=== PATIENT | female | born 1985 | race Caucasian/White ===

== ENCOUNTER 2017-09-21 08:45 | Emergency (ER) | payer BC ==
--- NOTE | 2017-09-21 09:47 | EDM.PDOC ---
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 Lives in [place], [place]. She called her clinic in [facility] and they suggested she go to a lab for a quant Beta HCG. She didn't know where to go so came here to our ER. Is very anxious. No cramping. Onset: Today Onset Date: 09/21/17 Duration: Hour(s):, Waxing/Waning Location: Reports: Pelvis Quality: Reports: Other (no pain) Severity: Mild Improves with: Reports: None Worsens with: Reports: Other (? 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: Reports: Endometriosis Other OB/BYN History: ENDOMETRIAL SCRAPING, IVF 08/28/17 - Past Surgical History HEENT Surgical History: Reports: Adenoidectomy, Tonsillectomy GI Surgical History: Reports: Cholecystectomy Social & Family History - Tobacco Use Smoking Status *Q: Unknown Ever Smoked ED ROS GENERAL - Review of Systems Review Of Systems: See Below Constitutional: Reports: No Symptoms HEENT: Reports: No Symptoms Respiratory: Reports: No Symptoms Cardiovascular: Reports: No Symptoms Endocrine: Reports: No Symptoms GI/Abdominal: Reports: No Symptoms : Reports: Other (pinkish vaginal discharge now, was darker earlier.) Musculoskeletal: Reports: No Symptoms Skin: Reports: No Symptoms Neurological: Reports: No Symptoms ED EXAM - Physical Exam Exam: See Below Exam Limited By: No Limitations General Appearance: Alert, WD/WN, No Apparent Distress, Anxious Eye Exam: Bilateral Eye: Normal Inspection Ears: Normal External Exam, Normal Canal, Hearing Grossly Normal, Normal TMs Nose: Normal Inspection, Normal Mucosa, No Blood Throat/Mouth: Normal Inspection, Normal Lips, Normal Oropharynx, Normal Voice, No Airway Compromise Head: Atraumatic, Normocephalic Neck: Normal Inspection Respiratory/Chest: No Respiratory Distress, Lungs Clear, Normal Breath Sounds, No Accessory Muscle Use Cardiovascular: Regular Rate, Rhythm, No Edema GI/Abdominal Exam: Normal Bowel Sounds, Soft (Female) Exam: Other (No attempt maded to listen for heart tones due to being only 3 weeks .) Back Exam: Normal Inspection. No: CVA Tenderness (R), CVA Tenderness (L) Extremities: Normal Inspection, Normal Range of Motion, Non-Tender, No Pedal Edema Neurological: Alert, Oriented, CN II-XII Intact, Normal Cognition, No Motor/ Sensory Deficits Psychiatric: Normal Affect, Normal Mood Skin Exam: Warm, Dry, Intact, Normal Color, No Rash Lymphatic: No Adenopathy Course - Vital Signs Last Recorded V/S: Last Vital Signs Temp 37.1 C 09/21/17 09:03 Pulse 101 H 09/21/17 09:03 Resp 20 09/21/17 09:03 BP 130/85 09/21/17 09:03 Pulse Ox 98 09/21/17 09:03 - Orders/Labs/Meds Labs: Laboratory Tests 09/21/17 Range/Units 09:37 HCG, Quant 06316 H (0-6) mIU/mL Departure - Departure Time of Disposition: 10:36 Disposition: Home, Self-Care 01 Condition: Good Clinical Impression: Vaginal bleeding affecting early - Discharge Information Referrals: PCP,None [Primary Care Provider] - Forms: ED Department Discharge
== END 2017-09-21 10:45 | disposition home or self-care (01) ==
LOC: JP.ED 08:45
DX: O20.9 Hemorrhage in early pregnancy, unspecified (principal); Z79.899 Other long term (current) drug therapy; Z3A.01 Less than 8 weeks gestation of pregnancy
CPT/HCPCS: 36415; 84702; 99284

== ENCOUNTER 2020-09-06 06:16 | Emergency (ER) | payer BC ==
--- NOTE | 2020-09-06 06:38 | EDM.PDOC ---
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 Patient is reportedly 9 weeks by dates. She has a history of IVF, however, this was a "natural ". Her first in 2018 went to full-term with a successful delivery. The patient is -0-0-1. The patient's blood type is A +. The patient reports that she got up this morning to go the bathroom and there was a small sized clot in the toilet and when she wiped there was some blood on the toilet paper. The spotting has subsequently gone away as she voided here in the ED and had no more blood. She denies any fever, chills, cough, chest pain or shortness of breath, loss of taste or smell, nausea, vomiting, diarrhea, or constipation. She has no urgency, frequency, or burning with urination. 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 She was scheduled for a ultrasound on Sunday. 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 RECRUITER History: ENDOMETRIAL SCRAPING, IVF 08/28/17 - Past Surgical History HEENT Surgical History: Reports: Adenoidectomy, Tonsillectomy GI Surgical History: Reports: Cholecystectomy <Sameer Gerber - Last Filed: 09/06/20 07:06> ED ROS GENERAL - Review of Systems Review Of Systems: See Below Constitutional: Reports: No Symptoms Respiratory: Reports: No Symptoms Cardiovascular: Reports: No Symptoms Endocrine: Reports: No Symptoms GI/Abdominal: Reports: No Symptoms : Reports: Other (Spotting at 9 weeks ) Musculoskeletal: Reports: No Symptoms Skin: Reports: No Symptoms Neurological: Reports: No Symptoms Psychiatric: Reports: Anxiety Hematologic/Lymphatic: Reports: No Symptoms Immunologic: Reports: No Symptoms <Sameer Gerber - Last Filed: 09/06/20 07:06> ED EXAM - Physical Exam Exam: See Below Exam Limited By: No Limitations General Appearance: Alert, WD/WN, No Apparent Distress Throat/Mouth: Normal Inspection, Normal Lips, Normal Oropharynx, Normal Voice Head: Atraumatic, Normocephalic Respiratory/Chest: No Respiratory Distress, Lungs Clear, Normal Breath Sounds Cardiovascular: Normal Peripheral Pulses, Regular Rate, Rhythm, No Edema, No Murmur GI/Abdominal Exam: Normal Bowel Sounds, Soft, Non-Tender Back Exam: Normal Inspection, Full Range of Motion Neurological: Alert, Oriented, Normal Cognition, No Motor/Sensory Deficits Psychiatric: Normal Affect, Normal Mood Skin Exam: Warm, Dry, Intact, Normal Color <Sameer Gerber - Last Filed: 09/06/20 07:06> Course <Sameer Gerebr - Last Filed: 09/06/20 07:06> <Matt Collins - Last Filed: 09/06/20 07:53> - Vital Signs Last Recorded V/S: Last Vital Signs Temp 37.1 C 09/06/20 06:33 Pulse 116 H 09/06/20 06:33 Resp 20 09/06/20 06:33 BP 131/94 H 09/06/20 06:33 Pulse Ox 99 09/06/20 06:33 - Orders/Labs/Meds Orders: Active Orders 24 hr Category Date Time Status OB 1st Tri Sgl 1st Gest [US] Stat Exams 09/06/20 06:38 Ordered OB Transvaginal [US] Stat Exams 09/06/20 06:38 Ordered Labs: Laboratory Tests 09/06/20 09/06/20 Range/Units 06:33 06:40 HCG, Quant 06456 H (0-6) mIU/mL Urine Color Yellow (YELLOW) Urine Appearance Clear (CLEAR) Urine pH 7.0 (5.0-8.0) Ur Specific [place] 1.015 (1.008-1.030) Urine Protein Negative (NEGATIVE) mg/dL Urine Glucose (UA) Negative (NEGATIVE) mg/dL Urine Ketones Negative (NEGATIVE) mg/dL Urine Occult Blood Small H (NEGATIVE) Urine Nitrite Negative (NEGATIVE) Urine Bilirubin Negative (NEGATIVE) Urine Urobilinogen 0.2 (0.2-1.0) EU/dL Ur Leukocyte Esterase Small H (NEGATIVE) Urine RBC 0-5 (0-5) Urine WBC 5-10 H (0-5) Ur Epithelial Cells Moderate Amorphous Sediment Not seen Urine Bacteria Few Urine Mucus Not seen - Re-Assessments/Exams Free Text/Narrative Re-Assessment/Exam: 09/06/20 07:06 care of the patient is turned over to Dr. Collins at 0700 hrs. while awaiting the results of labs and ultrasound. (Sameer Gerber) Free Text/Narrative Re-Assessment/Exam: 09/06/20 07:51 US showed vial embryo with HR in 180's, small bleed seen. (Matt Collins) Departure <Sameer Gerber - Last Filed: 09/06/20 07:06> - Departure Time of Disposition: 07:52 Condition: Good - Discharge Information *PRESCRIPTION DRUG MONITORING PROGRAM REVIEWED*: Not Applicable *COPY OF PRESCRIPTION DRUG MONITORING REPORT IN PATIENT BRANNON: Not Applicable <Matt Collins - Last Filed: 09/06/20 07:53> - Departure Disposition: Home, Self-Care 01 Clinical Impression: First trimester bleeding - Discharge Information Referrals: Azul Vazquez CNM [Primary Care Provider] - Forms: ED Department Discharge Additional Instructions: F/U with your provider. No specific treatment indicated today. Sepsis Event Note (ED) - Focused Exam Vital Signs: Vital Signs Temp Pulse Resp BP Pulse Ox 09/06/20 06:33 37.1 C 116 H 20 131/94 H 99
--- NOTE | 2020-09-06 09:43 | US ---
INDICATION: 1st trimester bleeding COMPARISON: None FINDINGS: Uterus measures 11.6 x 6.0 x 8.1 cm. There is a gestational sac within the uterus main sac diameter is 3.0 cm correlating to an 8 week 3 day gestation. There is a pole. [place]-rump length measures 2.4 cm which correlates to a 9 week 2 day gestation. heart rate: 181 BPM. TALA is 04/09/2021 Yolk sac seen. Other findings: There is a small chorionic hemorrhage below the gestational sac measuring 1.9 x 0.4 x 0.8 cm. IMPRESSION: Single live IUP at 9 weeks 2 days There is subchorionic hemorrhage inferior to the gestational sac measuring 1.9 x 0.4 x 0.8 cm
== END 2020-09-06 08:00 | disposition home or self-care (01) ==
LOC: JP.ED 06:16
DX: O20.9 Hemorrhage in early pregnancy, unspecified (principal); Z88.1 Allergy status to other antibiotic agents; Z3A.09 9 weeks gestation of pregnancy
CPT/HCPCS: 36415; 76801; 76801-26; 81001; 84702; 99282; 99284-25

== ENCOUNTER 2021-03-27 21:51 | Inpatient (IN) | payer BC, MEDICAID ==
[2021-03-27] MEDS ORDERED: Sodium Chloride 0.9% 10 ML Syringe FLUSH PRN (23:31)
[2021-03-27] MEDS ORDERED: Acetaminophen 325 MG Tab PO PRN (23:31)
[2021-03-27] MEDS ORDERED: Ondansetron 4 MG/2 ML SDV IV PRN (23:31)
--- NOTE | 2021-03-27 23:43 | PCM.LDHP ---
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, Other OB/BYN History: ENDOMETRIAL SCRAPING, IVF 08/28/17 - Past Surgical History HEENT Surgical History: Reports: Adenoidectomy, Tonsillectomy GI Surgical History: Reports: Cholecystectomy Social & Family History - Tobacco Use Tobacco Use Status *Q: Never Tobacco User Second Hand Smoke Exposure: No - Caffeine Use Caffeine Use: Reports: Soda - Recreational Drug Use Recreational Drug Use: No H&P Review of Systems - Review of Systems: Review Of Systems: See Below General: Reports: No Symptoms HEENT: Reports: No Symptoms Pulmonary: Reports: No Symptoms Cardiovascular: Reports: No Symptoms Gastrointestinal: Reports: No Symptoms Genitourinary: Reports: No Symptoms Musculoskeletal: Reports: No Symptoms Skin: Reports: No Symptoms Psychiatric: Reports: No Symptoms Neurological: Reports: No Symptoms Hematologic/Lymphatic: Reports: No Symptoms Immunologic: Reports: No Symptoms L&D Exam - Exam Exam: See Below - Vital Signs Vital Signs: Last Vital Signs Temp 36.3 C 03/27/21 22:00 Pulse 82 03/27/21 22:00 Resp 16 03/27/21 22:00 BP 147/76 H 03/27/21 22:00 Pulse Ox 97 03/27/21 22:00 Weight: 83.915 kg - OB Specific Contraction Intensity: Moderate to Strong Movement: Active Heart Tones: Present Heart Rate (FHR) Variability: Moderate (6-25 bpm) Presentation: Vertex - Acharya Score Acharya Score Cervix Position: Midposition Acharya Score Consistency: Soft Acharya Score Effacement: >80% Acharya Score Dilation: 3-4 cm Acharya Score Infant's Station: -1 ,0 Acharya Score Total: 10 - Exam General: Alert, Oriented, Cooperative HEENT: PERRLA, Conjunctiva Clear, EACs Clear, EOMI, Hearing Intact, Mucosa Moist & [place], Nares Patent, Normal Nasal Septum, Posterior Pharynx Clear, TMs Clear Neck: Supple, Trachea Midline Lungs: Clear to Auscultation, Normal Respiratory Effort Cardiovascular: Regular Rate, Regular Rhythm GI/Abdominal Exam: Normal Bowel Sounds, Soft, Non-Tender, No Organomegaly, No Distention, No Abnormal Bruit, No Mass, Pelvis Stable Rectal Exam: Normal Exam, Normal Rectal Tone Genitourinary: Normal external exam, Normal bimanual exam, Normal speculum exam Back Exam: Normal Inspection, Full Range of Motion Extremities: Normal Inspection, Normal Range of Motion, Non-Tender, No Pedal Edema, Normal Capillary Refill Skin: Warm, Dry, Intact Neurological: Cranial Nerves Intact, Reflexes Equal Bilateral Psychiatric: Alert, Normal Affect, Normal Mood - Patient Data Lab Results Last 24 hrs: Laboratory Results - last 24 hr 03/27/21 03/27/21 03/27/21 Range/Units 22:01 22:01 22:30 WBC 10.1 (4.5-11.0) K/uL RBC 4.00 (3.30-5.50) M/uL Hgb 11.1 L (12.0-15.0) g/dL Hct 33.5 L (36.0-48.0) % MCV 84 (80-98) fL MCH 28 (27-31) pg MCHC 33 (32-36) % Plt Count 206 (150-400) K/uL Urine Color Yellow (YELLOW) Urine Appearance Cloudy A (CLEAR) Urine pH 7.0 (5.0-8.0) Ur Specific [place] 1.020 (1.008-1.030) Urine Protein Negative (NEGATIVE) mg/dL Urine Glucose (UA) 250 H (NEGATIVE) mg/dL Urine Ketones Trace H (NEGATIVE) mg/dL Urine Occult Blood Negative (NEGATIVE) Urine Nitrite Negative (NEGATIVE) Urine Bilirubin Negative (NEGATIVE) Urine Urobilinogen 0.2 (0.2-1.0) EU/dL Ur Leukocyte Esterase Trace H (NEGATIVE) Urine RBC 0-5 (0-5) Urine WBC 5-10 H (0-5) Ur Epithelial Cells Moderate Amorphous Sediment Few Urine Bacteria Moderate Urine Mucus Few Urine Opiates Screen Negative (NEGATIVE) Ur Oxycodone Screen Negative (NEGATIVE) Urine Methadone Screen Negative (NEGATIVE) Ur Propoxyphene Screen Negative (NEGATIVE) Ur Barbiturates Screen Negative (NEGATIVE) Ur Tricyclics Screen Negative (NEGATIVE) Ur Phencyclidine Scrn Negative (NEGATIVE) Ur Amphetamine Screen Negative (NEGATIVE) U Methamphetamines Scrn Negative (NEGATIVE) Urine MDMA Screen Negative (NEGATIVE) U Benzodiazepines Scrn Negative (NEGATIVE) U Cocaine Metab Screen Negative (NEGATIVE) U Marijuana (THC) Screen Negative (NEGATIVE) SARS CoV-2 RNA Rapid GEOFF 03/27/21 Range/Units 22:51 WBC (4.5-11.0) K/uL RBC (3.30-5.50) M/uL Hgb (12.0-15.0) g/dL Hct (36.0-48.0) % MCV (80-98) fL MCH (27-31) pg MCHC (32-36) % Plt Count (150-400) K/uL Urine Color (YELLOW) Urine Appearance (CLEAR) Urine pH (5.0-8.0) Ur Specific [place] (1.008-1.030) Urine Protein (NEGATIVE) mg/dL Urine Glucose (UA) (NEGATIVE) mg/dL Urine Ketones (NEGATIVE) mg/dL Urine Occult Blood (NEGATIVE) Urine Nitrite (NEGATIVE) Urine Bilirubin (NEGATIVE) Urine Urobilinogen (0.2-1.0) EU/dL Ur Leukocyte Esterase (NEGATIVE) Urine RBC (0-5) Urine WBC (0-5) Ur Epithelial Cells Amorphous Sediment Urine Bacteria Urine Mucus Urine Opiates Screen (NEGATIVE) Ur Oxycodone Screen (NEGATIVE) Urine Methadone Screen (NEGATIVE) Ur Propoxyphene Screen (NEGATIVE) Ur Barbiturates Screen (NEGATIVE) Ur Tricyclics Screen (NEGATIVE) Ur Phencyclidine Scrn (NEGATIVE) Ur Amphetamine Screen (NEGATIVE) U Methamphetamines Scrn (NEGATIVE) Urine MDMA Screen (NEGATIVE) U Benzodiazepines Scrn (NEGATIVE) U Cocaine Metab Screen (NEGATIVE) U Marijuana (THC) Screen (NEGATIVE) SARS CoV-2 RNA Rapid GEOFF Negative Result Diagrams: 03/27/21 22:30 - Problem List (1) SNOMED Code(s): 56979537 ICD Code: Z34.90 - ENCNTR FOR SUPRVSN OF NORMAL , UNSP, UNSP TRIMESTER Status: Acute Current Visit: Yes (2) Labor established SNOMED Code(s): 22006574 ICD Code: FTW7559 - Status: Acute Current Visit: Yes (3) History of third degree perineal laceration SNOMED Code(s): 664867003 ICD Code: Z87.59 - PERSONAL HISTORY OF COMP OF PREG, CHLDBRTH AND THE PUERP Status: Acute Current Visit: Yes (4) History of delivery by vacuum extraction, currently SNOMED Code(s): 656185736, 368943927 ICD Code: O09.299 - SUPRVSN OF PREG W POOR REPRODCTV OR OBSTET HISTORY, UNSP TRI Status: Acute Current Visit: Yes Problem List Initiated/Reviewed/Updated: Yes Orders Last 24hrs: Active Orders 24 hr Category Date Time Status Patient Status [ADT] Routine ADT 03/27/21 23:31 Active Ambulate [RC] PER UNIT ROUTINE Care 03/27/21 23:31 Ordered Communication Order [RC] ASDIRECTED Care 03/27/21 23:31 Ordered Communication Order [RC] Per Unit Routine Care 03/27/21 23:31 Ordered Communication Order [RC] Per Unit Routine Care 03/27/21 23:31 Ordered Communication Order [RC] Per Unit Routine Care 03/27/21 23:31 Ordered Communication Order [RC] Per Unit Routine Care 03/27/21 23:31 Ordered Heart Tones [RC] PER UNIT ROUTINE Care 03/27/21 23:31 Ordered Non Stress Test [RC] Click to Edit Care 03/27/21 23:31 Ordered Nitrous Oxide Delivery [RC] ASDIRECTED Care 03/27/21 23:31 Ordered Notify Provider Vital Signs [RC] PRN Care 03/27/21 23:31 Ordered Notify Provider [RC] PRN Care 03/27/21 23:31 Ordered OB Check [OM.PC] Click To Edit Care 03/27/21 22:01 Ordered Oxygen Therapy [RC] ASDIRECTED Care 03/27/21 23:31 Ordered Pulse Oximetry [RC] ASDIRECTED Care 03/27/21 23:31 Ordered Up ad Kristel [RC] ASDIRECTED Care 03/27/21 23:31 Ordered VTE/DVT Education [RC] Click to Edit Care 03/27/21 23:33 Ordered Verify Patient Consent Obtain [RC] ASDIRECTED Care 03/27/21 23:31 Ordered Vital Signs [RC] PER UNIT ROUTINE Care 03/27/21 23:31 Ordered Vital Signs [RC] PER UNIT ROUTINE Care 03/27/21 23:31 Ordered Acetaminophen [TylenoL] Med 03/27/21 23:31 Ordered 650 mg PO Q4H PRN Ondansetron [Zofran] Med 03/27/21 23:31 Ordered 4 mg IV Q4H PRN Sodium Chloride 0.9% [Saline Flush] Med 03/27/21 23:31 Ordered 10 ml FLUSH ASDIRECTED PRN DVT/VTE Prophylaxis Reflex [OM.PC] Routine Oth 03/27/21 23:31 Ordered Medication Discontinuation Instructions [OM.PC] Routine Oth 03/27/21 23:31 Ordered Saline Lock Insert [OM.PC] Routine Oth 03/27/21 23:31 Ordered Resuscitation Status Routine Resus Stat 03/27/21 23:31 Ordered Assessment/Plan Comment:: 03/27/2021 35 yo here at 38 3/7 gestational weeks came in labor late this evening around 10pm. She states her contractions started getting stronger and she was worried so she came in. SVE-4-5/85/-1 FHTs category one Contractions every 2-4 minutes at bedside and supportive Labs-A positive, Hep B neg, Hep C neg, HIV neg, RPR nonreactive, Rubella Immune, GBS negative, COVID negative History of a vacuum assist delivery with last baby History of a third degree laceration with her last baby Plans Continue to monitor labor Continue to monitor FHTS Pain management per patient request Plan and anticipate a vaginal delivery
[2021-03-28] MEDS ORDERED: fentaNYL 100 MCG/2 ML SDV IVPUSH ONE ×2 (01:13→01:26)
[2021-03-28] MEDS ORDERED: fentaNYL 100 MCG/2 ML SDV ONE ×2 (01:13→01:25)
[2021-03-28] MEDS ORDERED: Lidocaine 1% 50 ML MDV ONE (01:18)
[2021-03-28] MEDS ORDERED: Lidocaine 1% 20 ML MDV INJECT ONE (01:18)
[2021-03-28] MEDS ORDERED: Misoprostol 200 MCG Tab ONE (01:27)
[2021-03-28] MEDS ORDERED: Carboprost Tromethamine 250 MCG/1 ML Amp ONE (01:27)
[2021-03-28] MEDS ORDERED: Methylergonovine 0.2 MG/1 ML Amp ONE (01:27)
[2021-03-28] MEDS ORDERED: Benzocaine 20% Top Spray 56 GM Bottle TOP ONE (01:46)
[2021-03-28] MEDS ORDERED: Witch Hazel Medicated Pads 100/Jar TOP ONE (01:46)
[2021-03-28] MEDS ORDERED: Acetaminophen 325 MG Tab, 50 Tab Bulk Bottle PO PRN (01:46)
[2021-03-28] MEDS ORDERED: Lanolin 100% Cream 40 GM Tube TOP ONE (01:46)
[2021-03-28] MEDS ORDERED: Ibuprofen 200 MG Tab, 24 Tab Bulk Bottle PO PRN (01:46)
--- NOTE | 2021-03-28 02:09 | PCM.DEL ---
L & D Note - General Info Date of Service: 03/28/21 - Delivery Note Delivery Outcome: Livebirth Infant Delivery Method: Spontaneous Vaginal Delivery-Single Infant Delivery Mode: Spontaneous Presentation: Left Occiput Anterior (KEI) Nuchal Cord: None Anesthesia Type: Nitrous Oxide Amniotic Fluid Description: scant amt Episiotomy Type: None Laceration: 1st Degree, Perineal (not repaired), Other (had two small skin pieces from past delivery, did cut them per patient request) Placenta: Intact, Spontaneous Cord: 3 Vessels Estimated Blood Loss: 250 : Bulb Syringe, Stimulated, Warmed, [place] Used Provider: Azul Vazquez Score 1 min: 9 Score 5 min: 9 Second Stage Interventions: Reports: Second Nurse Assessed Progress of Descent, Second Nurse Reviewed Contraction Pattern, Second Nurse Reviewed Heart Tones, Encouragement Given, Pushing Effectively, Pushing, Feet in Foot Rests, Pushing, McRobert's Position Delivery Comments (Free Text/Narrative):: 03/28/2021 35 yo delivered a viable female infant at 38 3/7 gestational weeks in KEI position over and intact perineum at 0104 on 03/28/2021. Mother had only pushed through a few contractions and descended infant quickly. Infant delivered and then placed on prewarmed blanket on mothers abdomen. dried, stimulated, and warmed. began to cry and pink in color. Delayed cord clamping was done for approximately 90 seconds, then cord was double clamped by provider and cut by father of infant. Infant then brought up skin to skin with mother of and was crying vigorously. APGARS-9/9, weight-6lbs 8oz, length-19.5 inches. Placenta then was slow to come, and came maternal side out, had trailing long piece of membranes which we held with a ring forcep to guide out. Fundus was firm with small bleeding, no clots. Three vessel cord. EBL-250ml. No lacerations noted of labia, cervix, or rectum. Did have a small first degree perineal not bleeding, not repaired. On exam did have to small hanging skin pieces patient asked for these to be removed. Tiny cut done and no numbing needed, patient tolerated well. now skin to skin with mother in labor and delivery room and both stable at this time. Stages of labor- [id number] - General Info Date of Service: 03/28/21 - Review of Systems General: Reports: No Symptoms HEENT: Reports: No Symptoms Pulmonary: Reports: No Symptoms Cardiovascular: Reports: No Symptoms Gastrointestinal: Reports: No Symptoms Genitourinary: Reports: No Symptoms Musculoskeletal: Reports: No Symptoms Skin: Reports: No Symptoms Neurological: Reports: No Symptoms Psychiatric: Reports: No Symptoms - Patient Data Vitals - Most Recent: Last Vital Signs Temp 36.3 C 03/27/21 22:00 Pulse 82 03/27/21 22:00 Resp 16 03/27/21 22:00 BP 147/76 H 03/27/21 22:00 Pulse Ox 97 03/27/21 22:00 Weight - Most Recent: 83.915 kg Lab Results Last 24 Hours: Laboratory Results - last 24 hr 03/27/21 03/27/21 03/27/21 Range/Units 22:01 22:01 22:30 WBC 10.1 (4.5-11.0) K/uL RBC 4.00 (3.30-5.50) M/uL Hgb 11.1 L (12.0-15.0) g/dL Hct 33.5 L (36.0-48.0) % MCV 84 (80-98) fL MCH 28 (27-31) pg MCHC 33 (32-36) % Plt Count 206 (150-400) K/uL Urine Color Yellow (YELLOW) Urine Appearance Cloudy A (CLEAR) Urine pH 7.0 (5.0-8.0) Ur Specific [place] 1.020 (1.008-1.030) Urine Protein Negative (NEGATIVE) mg/dL Urine Glucose (UA) 250 H (NEGATIVE) mg/dL Urine Ketones Trace H (NEGATIVE) mg/dL Urine Occult Blood Negative (NEGATIVE) Urine Nitrite Negative (NEGATIVE) Urine Bilirubin Negative (NEGATIVE) Urine Urobilinogen 0.2 (0.2-1.0) EU/dL Ur Leukocyte Esterase Trace H (NEGATIVE) Urine RBC 0-5 (0-5) Urine WBC 5-10 H (0-5) Ur Epithelial Cells Moderate Amorphous Sediment Few Urine Bacteria Moderate Urine Mucus Few Urine Opiates Screen Negative (NEGATIVE) Ur Oxycodone Screen Negative (NEGATIVE) Urine Methadone Screen Negative (NEGATIVE) Ur Propoxyphene Screen Negative (NEGATIVE) Ur Barbiturates Screen Negative (NEGATIVE) Ur Tricyclics Screen Negative (NEGATIVE) Ur Phencyclidine Scrn Negative (NEGATIVE) Ur Amphetamine Screen Negative (NEGATIVE) U Methamphetamines Scrn Negative (NEGATIVE) Urine MDMA Screen Negative (NEGATIVE) U Benzodiazepines Scrn Negative (NEGATIVE) U Cocaine Metab Screen Negative (NEGATIVE) U Marijuana (THC) Screen Negative (NEGATIVE) SARS CoV-2 RNA Rapid GEOFF 03/27/21 Range/Units 22:51 WBC (4.5-11.0) K/uL RBC (3.30-5.50) M/uL Hgb (12.0-15.0) g/dL Hct (36.0-48.0) % MCV (80-98) fL MCH (27-31) pg MCHC (32-36) % Plt Count (150-400) K/uL Urine Color (YELLOW) Urine Appearance (CLEAR) Urine pH (5.0-8.0) Ur Specific [place] (1.008-1.030) Urine Protein (NEGATIVE) mg/dL Urine Glucose (UA) (NEGATIVE) mg/dL Urine Ketones (NEGATIVE) mg/dL Urine Occult Blood (NEGATIVE) Urine Nitrite (NEGATIVE) Urine Bilirubin (NEGATIVE) Urine Urobilinogen (0.2-1.0) EU/dL Ur Leukocyte Esterase (NEGATIVE) Urine RBC (0-5) Urine WBC (0-5) Ur Epithelial Cells Amorphous Sediment Urine Bacteria Urine Mucus Urine Opiates Screen (NEGATIVE) Ur Oxycodone Screen (NEGATIVE) Urine Methadone Screen (NEGATIVE) Ur Propoxyphene Screen (NEGATIVE) Ur Barbiturates Screen (NEGATIVE) Ur Tricyclics Screen (NEGATIVE) Ur Phencyclidine Scrn (NEGATIVE) Ur Amphetamine Screen (NEGATIVE) U Methamphetamines Scrn (NEGATIVE) Urine MDMA Screen (NEGATIVE) U Benzodiazepines Scrn (NEGATIVE) U Cocaine Metab Screen (NEGATIVE) U Marijuana (THC) Screen (NEGATIVE) SARS CoV-2 RNA Rapid GEOFF Negative Med Orders - Current: Current Medications Acetaminophen (Acetaminophen 325 Mg Tab) 650 mg PO Q4H PRN PRN Reason: Pain (Mild 1-3) and fever Acetaminophen (Acetaminophen 325 Mg Tab, 50 Tab Bulk Bottle) 0 mg PO Q4H PRN PRN Reason: Pain Ibuprofen (Ibuprofen 200 Mg Tab, 24 Tab Bulk Bottle) 600 mg PO Q6H PRN PRN Reason: Pain Ondansetron HCl (Ondansetron 4 Mg/2 Ml Sdv) 4 mg IV Q4H PRN PRN Reason: Nausea/Vomiting Sodium Chloride (Sodium Chloride 0.9% 10 Ml Syringe) 10 ml FLUSH ASDIRECTED PRN PRN Reason: Keep Vein Open Discontinued Medications Benzocaine (Benzocaine 20% Top [place] 56 Gm Bottle) 0 gm TOP ONETIME ONE Stop: 03/28/21 01:47 Carboprost Tromethamine (Carboprost Tromethamine 250 Mcg/1 Ml Amp) Confirm Administered Dose 250 mcg .ROUTE .STK-MED ONE Stop: 03/28/21 01:28 Emollient Ointment (Lanolin 100% Cream 40 Gm Tube) 1 gm TOP ONETIME ONE Stop: 03/28/21 01:47 Fentanyl (Fentanyl 100 Mcg/2 Ml Sdv) Confirm Administered Dose 100 mcg .ROUTE .STK-MED ONE Stop: 03/28/21 01:14 Fentanyl (Fentanyl 100 Mcg/2 Ml Sdv) Confirm Administered Dose 100 mcg .ROUTE .STK-MED ONE Stop: 03/28/21 01:26 Oxytocin/Sodium Chloride (Pitocin In Ns 20 Units/1,000 Ml) Confirm Administered Dose 20 unit in 1,000 mls @ as directed .ROUTE .STK-MED ONE Stop: 03/28/21 00:33 Lidocaine HCl (Lidocaine 1% 50 Ml Mdv) Confirm Administered Dose 50 ml .ROUTE .STK-MED ONE Stop: 03/28/21 01:19 Methylergonovine Maleate (Methylergonovine 0.2 Mg/1 Ml Amp) Confirm Administered Dose 0.2 mg .ROUTE .STK-MED ONE Stop: 03/28/21 01:28 Misoprostol (Misoprostol 200 Mcg Tab) Confirm Administered Dose 800 mcg .ROUTE .STK-MED ONE Stop: 03/28/21 01:28 Witch Adela (Witch Adela Medicated Pads 100/Jar) 1 pad TOP ONETIME ONE Stop: 03/28/21 01:47 - Exam General: Alert, Oriented, Cooperative HEENT: Pupils Equal, Pupils Reactive, EOMI, Mucous Membr. Moist/[place] Neck: Supple Lungs: Clear to Auscultation, Normal Respiratory Effort Cardiovascular: Regular Rate, Regular Rhythm GI/Abdominal Exam: Normal Bowel Sounds, Soft, Non-Tender, No Organomegaly, No Distention, No Abnormal Bruit, No Mass, Pelvis Stable (Female) Exam: Normal External Exam, Normal Speculum Exam, Normal Bimanual Exam, Enlarged Uterus, Vaginal Bleeding Back Exam: Normal Inspection, Full Range of Motion Extremities: Normal Inspection, Normal Range of Motion, Non-Tender, No Pedal Edema, Normal Capillary Refill Skin: Warm, Dry, Intact Neurological: No New Focal Deficit Psy/Mental Status: Alert, Normal Affect, Normal Mood - Problem List & Annotations (1) SNOMED Code(s): 98998551 Code(s): Z34.90 - ENCNTR FOR SUPRVSN OF NORMAL , UNSP, UNSP TRIMESTER Status: Acute Current Visit: Yes Qualifiers: Weeks of gestation: 38 weeks Qualified Code(s): Z3A.38 - 38 weeks gestation of (2) Labor established SNOMED Code(s): 75093923 Code(s): BGX7881 - Status: Acute Current Visit: Yes (3) History of third degree perineal laceration SNOMED Code(s): 697771950 Code(s): Z87.59 - PERSONAL HISTORY OF COMP OF PREG, CHLDBRTH AND THE PUERP Status: Acute Current Visit: Yes (4) History of delivery by vacuum extraction, currently SNOMED Code(s): 479491263, 809739311 Code(s): O09.299 - SUPRVSN OF PREG W POOR REPRODCTV OR OBSTET HISTORY, UNSP TRI Status: Acute Current Visit: Yes (5) Vaginal delivery SNOMED Code(s): 742667298 Code(s): O80 - ENCOUNTER FOR FULL-TERM UNCOMPLICATED DELIVERY Status: Acute Current Visit: Yes (6) () SNOMED Code(s): 457260833 Code(s): Z78.9 - OTHER SPECIFIED HEALTH STATUS Status: Acute Current Visit: Yes (7) Abnormal placenta SNOMED Code(s): 218220686 Code(s): O43.109 - MALFORMATION OF PLACENTA, UNSPECIFIED, UNSPECIFIED TRIMESTER Status: Acute Current Visit: Yes - Problem List Review Problem List Initiated/Reviewed/Updated: Yes - My Orders Last 24 Hours: My Active Orders 03/27/21 22:01 OB Check [OM.PC] Click To Edit 03/27/21 23:31 Patient Status [ADT] Routine Ambulate [RC] PER UNIT ROUTINE Communication Order [RC] ASDIRECTED Communication Order [RC] Per Unit Routine Communication Order [RC] Per Unit Routine Communication Order [RC] Per Unit Routine Communication Order [RC] Per Unit Routine Heart Tones [RC] PER UNIT ROUTINE Non Stress Test [RC] Click to Edit Nitrous Oxide Delivery [RC] ASDIRECTED Notify Provider Vital Signs [RC] PRN Notify Provider [RC] PRN Oxygen Therapy [RC] ASDIRECTED Pulse Oximetry [RC] ASDIRECTED Up ad Kristel [RC] ASDIRECTED Verify Patient Consent Obtain [RC] ASDIRECTED Vital Signs [RC] PER UNIT ROUTINE Vital Signs [RC] PER UNIT ROUTINE Acetaminophen [TylenoL] 650 mg PO Q4H PRN Ondansetron [Zofran] 4 mg IV Q4H PRN Sodium Chloride 0.9% [Saline Flush] 10 ml FLUSH ASDIRECTED PRN DVT/VTE Prophylaxis Reflex [OM.PC] Routine Medication Discontinuation Instructions [OM.PC] Routine Saline Lock Insert [OM.PC] Routine Resuscitation Status Routine 03/27/21 23:33 VTE/DVT Education [RC] Click to Edit 03/28/21 01:46 Patient Status [ADT] Routine Vital Signs [RC] PFP Consult to Ink Printer [CONS] Routine Acetaminophen [Tylenol Bulk Bottle] See Dose Instructions PO Q4H PRN Ibuprofen [Motrin Bulk Bottle] 600 mg PO Q6H PRN Assess Lochia [WOMSER] Per Unit Routine Assess Uterine Involution [WOMSER] Per Unit Routine 03/28/21 01:47 Ice Therapy [OM.PC] Per Unit Routine Perineal Care [OM.PC] Per Unit Routine 03/29/21 06:00 CBC WITH AUTO DIFF [HEME] Routine - Assessment Assessment:: 03/28/2021 35 yo G2 now P2 delivered without complications 1st degree perineal laceration not bleeding not repaired Fundus firm - Plan Plan:: 03/27/2021 35 yo here at 38 3/7 gestational weeks came in labor late this evening around 10pm. She states her contractions started getting stronger and she was worried so she came in. SVE-4-5/85/-1 FHTs category one Contractions every 2-4 minutes at bedside and supportive Labs-A positive, Hep B neg, Hep C neg, HIV neg, RPR nonreactive, Rubella Immune, GBS negative, COVID negative History of a vacuum assist delivery with last baby History of a third degree laceration with her last baby Plans Continue to monitor labor Continue to monitor FHTS Pain management per patient request Plan and anticipate a vaginal delivery 03/28/2021 Routine cares Encourage and support Discharge home in 24-48 hours
[2021-03-28] MEDS ORDERED: Lanolin 100% Cream 40 GM Tube TOP PRN (05:36)
[2021-03-28] MEDS ORDERED: Benzocaine 20% Top Spray 56 GM Bottle TOP PRN (05:37)
[2021-03-28] MEDS ORDERED: Witch Hazel Medicated Pads 100/Jar TOP PRN (07:32)
--- NOTE | 2021-03-29 07:36 | PCM.PNPP ---
- General Info Date of Service: 03/29/21 Admission Dx/Problem (Free Text): Patient Status Order with Admit Dx/Problem 03/27/21 23:31 Patient Status [ADT] Routine Admission Diagnosis/Problem Admission Diagnosis/Problem Functional Status: Reports: Pain Controlled - Review of Systems General: Reports: No Symptoms HEENT: Reports: No Symptoms Pulmonary: Reports: No Symptoms Cardiovascular: Reports: No Symptoms Gastrointestinal: Reports: No Symptoms Genitourinary: Reports: No Symptoms Musculoskeletal: Reports: No Symptoms Skin: Reports: No Symptoms Neurological: Reports: No Symptoms Psychiatric: Reports: No Symptoms - Patient Data Vital Signs - Most Recent: Last Vital Signs Temp 98.2 F 03/28/21 20:30 Pulse 82 03/28/21 20:30 Resp 16 03/28/21 20:30 BP 113/78 03/28/21 20:30 Pulse Ox 100 03/28/21 20:30 Weight - Most Recent: 185 lb I&O - Last 24 Hours: Intake & Output 03/28/21 03/29/21 03/29/21 22:59 06:59 14:59 Intake Total 670 800 Balance 670 800 Lab Results - Last 24 Hours: Laboratory Results - last 24 hr 03/29/21 Range/Units 05:30 WBC 10.5 (4.5-11.0) K/uL RBC 3.92 (3.30-5.50) M/uL Hgb 10.9 L (12.0-15.0) g/dL Hct 33.1 L (36.0-48.0) % MCV 84 (80-98) fL MCH 28 (27-31) pg MCHC 33 (32-36) % Plt Count 165 (150-400) K/uL Neut % (Auto) 72.0 H (36-66) % Lymph % (Auto) 17.9 L (24-44) % [place] % (Auto) 8.4 H (2-6) % Eos % (Auto) 1.4 L (2-4) % Baso % (Auto) 0.3 (0-1) % Med Orders - Current: Current Medications Acetaminophen (Acetaminophen 325 Mg Tab, 50 Tab Bulk Bottle) 0 mg PO Q4H PRN PRN Reason: Pain Last Admin: 03/28/21 06:33 Dose: 650 mg Documented by: Benzocaine (Benzocaine 20% Top [place] 56 Gm Bottle) 0 gm TOP Q4H PRN PRN Reason: pain Emollient Ointment (Lanolin 100% Cream 40 Gm Tube) 1 gm TOP ASDIRECTED PRN PRN Reason: Pain Ibuprofen (Ibuprofen 200 Mg Tab, 24 Tab Bulk Bottle) 600 mg PO Q6H PRN PRN Reason: Pain Last Admin: 03/28/21 06:33 Dose: 600 mg Documented by: Ondansetron HCl (Ondansetron 4 Mg/2 Ml Sdv) 4 mg IV Q4H PRN PRN Reason: Nausea/Vomiting Sodium Chloride (Sodium Chloride 0.9% 10 Ml Syringe) 10 ml FLUSH ASDIRECTED PRN PRN Reason: Keep Vein Open Witch Adela (Witch Adela Medicated Pads 100/Jar) 1 pad TOP ASDIRECTED PRN PRN Reason: PERICARE Discontinued Medications Benzocaine (Benzocaine 20% Top [place] 56 Gm Bottle) 0 gm TOP ONETIME ONE Stop: 03/28/21 01:47 Last Admin: 03/28/21 05:39 Dose: Not Given Documented by: Carboprost Tromethamine (Carboprost Tromethamine 250 Mcg/1 Ml Amp) Confirm Administered Dose 250 mcg .ROUTE .STK-MED ONE Stop: 03/28/21 01:28 Last Admin: 03/28/21 05:24 Dose: Not Given Documented by: Emollient Ointment (Lanolin 100% Cream 40 Gm Tube) 1 gm TOP ONETIME ONE Stop: 03/28/21 01:47 Last Admin: 03/28/21 05:39 Dose: Not Given Documented by: Fentanyl (Fentanyl 100 Mcg/2 Ml Sdv) Confirm Administered Dose 100 mcg .ROUTE .STK-MED ONE Stop: 03/28/21 01:14 Last Admin: 03/28/21 05:22 Dose: Not Given Documented by: Fentanyl (Fentanyl 100 Mcg/2 Ml Sdv) Confirm Administered Dose 100 mcg .ROUTE .STK-MED ONE Stop: 03/28/21 01:26 Last Admin: 03/28/21 05:22 Dose: Not Given Documented by: Fentanyl (Fentanyl 100 Mcg/2 Ml Sdv) 50 mcg IVPUSH ONETIME ONE Stop: 03/28/21 01:14 Last Admin: 03/28/21 01:13 Dose: 50 mcg Documented by: Fentanyl (Fentanyl 100 Mcg/2 Ml Sdv) 100 mcg IVPUSH ONETIME ONE Stop: 03/28/21 01:27 Last Admin: 03/28/21 01:26 Dose: 100 mcg Documented by: Oxytocin/Sodium Chloride (Pitocin In Ns 20 Units/1,000 Ml) Confirm Administered Dose 20 unit in 1,000 mls @ as directed .ROUTE .STK-MED ONE Stop: 03/28/21 00:33 Last Admin: 03/28/21 01:05 Dose: 999 mls/hr Documented by: Oxytocin/Sodium Chloride (Pitocin In Ns 20 Units/1,000 Ml) 20 unit in 1,000 mls @ 2,997 mls/hr IV TITRATE FAUSTINO; Protocol Stop: 03/28/21 15:00 Lidocaine HCl (Lidocaine 1% 50 Ml Mdv) Confirm Administered Dose 50 ml .ROUTE .STK-MED ONE Stop: 03/28/21 01:19 Last Admin: 03/28/21 05:24 Dose: Not Given Documented by: Lidocaine HCl (Lidocaine 1% 20 Ml Mdv) 20 ml INJECT ONETIME ONE Stop: 03/28/21 01:19 Last Admin: 03/28/21 05:39 Dose: 20 ml Documented by: Methylergonovine Maleate (Methylergonovine 0.2 Mg/1 Ml Amp) Confirm Administered Dose 0.2 mg .ROUTE .STK-MED ONE Stop: 03/28/21 01:28 Last Admin: 03/28/21 05:24 Dose: Not Given Documented by: Misoprostol (Misoprostol 200 Mcg Tab) Confirm Administered Dose 800 mcg .ROUTE .STK-MED ONE Stop: 03/28/21 01:28 Last Admin: 03/28/21 05:24 Dose: Not Given Documented by: Vern Chapman (Witch Adela Medicated Pads 100/Jar) 1 pad TOP ONETIME ONE Stop: 03/28/21 01:47 Last Admin: 03/28/21 05:40 Dose: Not Given Documented by: - Interaction Infant Disposition, : [place] at Bedside Interaction: Holding Infant Feeding: Breastfed ; Nursed Well Support Person: - Recovery Exam Fundal Tone: Firm Fundal Level: At Umbilicus Fundal Placement: Midline Lochia Amount: Moderate Lochia Color: Rubra/Red Perineum Description: Intact, Minimal Bruising/Swelling Episiotomy/Laceration: None Bladder Status: Voiding Urinary Elimination: Voided - Exam General: Alert, Oriented HEENT: Pupils Equal Neck: Supple Lungs: Clear to Auscultation, Normal Respiratory Effort Cardiovascular: Regular Rate, Regular Rhythm GI/Abdominal Exam: Normal Bowel Sounds, Soft, Non-Tender, No Organomegaly, No Distention, No Abnormal Bruit, No Mass, Pelvis Stable Extremities: Normal Inspection, Normal Range of Motion, Non-Tender, No Pedal Edema, Normal Capillary Refill Skin: Warm, Dry, Intact Wound/Incisions: Healing Well Neurological: No New Focal Deficit Psy/Mental Status: Alert, Normal Affect, Normal Mood - Problem List Review Problem List Initiated/Reviewed/Updated: Yes - Assessment Assessment:: 03/28/2021 35 yo G2 now P2 delivered without complications 1st degree perineal laceration not bleeding not repaired Fundus firm 03/29/21 Doing well Clots with bleeding over night, better after shower HGB 10.9 and pumping want to go home - Plan Plan:: 03/27/2021 35 yo here at 38 3/7 gestational weeks came in labor late this evening around 10pm. She states her contractions started getting stronger and she was worried so she came in. SVE-4-/-1 FHTs category one Contractions every 2-4 minutes at bedside and supportive Labs-A positive, Hep B neg, Hep C neg, HIV neg, RPR nonreactive, Rubella Immune, GBS negative, COVID negative History of a vacuum assist delivery with last baby History of a third degree laceration with her last baby Plans Continue to monitor labor Continue to monitor FHTS Pain management per patient request Plan and anticipate a vaginal delivery 03/28/2021 Routine cares Encourage and support Discharge home in 24-48 home today see me in 6 weeks for a post visit
== END 2021-03-29 09:50 | disposition home or self-care (01) | DRG 560 ==
LOC: JP.OBCHECK 21:51 → JP.OB 21:52 → OBSVTOIN 03-28 01:04 → JP.MS 03-28 04:00
PROVIDERS: ADMIT Advanced Practice Midwife; ATTEND Advanced Practice Midwife
PROC: 10E0XZZ Delivery of Products of Conception, External Approach (ICD-10-PCS; principal; 2021-03-28)
DX: O80 Encounter for full-term uncomplicated delivery (principal); Z37.0 Single live birth; Z20.822 Contact with and (suspected) exposure to COVID-19; Z88.1 Allergy status to other antibiotic agents; Z3A.38 38 weeks gestation of pregnancy
CPT/HCPCS: 36415; 80305-QW; 81001; 85025; 85027; 99211; A9270-GY; J2590; J3010; U0002